=== PATIENT | male | born 1980 | race Caucasian/White ===

== ENCOUNTER 2016-12-12 07:42 | Emergency (ER) | payer BC ==
--- NOTE | 2016-12-12 08:34 | UC ---
Oscar Santiago Matthew, scribed for [facility] LouisYomi MD on 12/12/16 at 0828 . Respiratory Complaint HPI - HPI Summary HPI Summary: Nurse's Note: COUGH CONGESTION FOR 1 WEEK, pt states his whole family is sick and on abx Note:Vital signs stable, afebrile, BP 166/113, Pulse oxygen 100%. Note is made of previous Hx of depression and ADHD. Patient is on adderall. Review of visit Hx and PMHx does not show treatment for HTN. Patient was evaluated in 2011 for "chronic cough". He is currently on oxycodone for back pain. He stopped smoking 2 years ago. In Room Note: A 35 y/o male presents to [facility] with a cough for the past week. Associated symptoms includes chest congestion, rhinorrhea, nasal congestion, sinus discomfort, and sore throat. He denies fever, n/v/d, ear ache, chest pain , and SOB. He states that his whole family is ill and taking Abx. 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 No Hx of pneumonia. He states that usually in the spring or fall with the season changes, he normally develops a bronchitis. FHx of HTN - father , no diabetes, and no CAD. He states that his blood pressure has been increasing with his weight. - History of Current Complaint Chief Complaint: UCRespiratory Stated Complaint: RESP ISSUE Time Seen by Provider: 12/12/16 08:12 Hx Obtained From: Patient Onset/Duration: Gradual Onset, Lasting Weeks - 1, Still Present Timing: Constant Severity Initially: Mild Severity Currently: Mild Character: Cough: Productive Associated Signs And Symptoms: Positive: Nasal Congestion, Sinus Discomfort. Negative: Fever, Pleuritic Chest Pain - Allergies/Home Medications Allergies/Adverse Reactions: Allergies Allergy/AdvReac Type Severity Reaction Status Date / Time No Known Allergies Allergy Verified 12/12/16 07:59 Home Medications: Home Medications Amphetamine-Dextroamphetamine [Adderall 10 mg-] 1 tab PO DAILY 12/12/16 [ History Confirmed 12/12/16] Fexofenadine (NF) [Ivone 180 (NF)] 180 mg PO 12/12/16 [History] PMH/Surg Hx/FS Hx/Imm Hx Psychological History Of: Reports: Anxiety, Depression - Surgical History Surgical History: Yes Surgery Procedure, Year, and Place: T&A - Family History Known Family History: Positive: Hypertension - Father Negative: Cardiac Disease, Diabetes - Social History Occupation: Employed Full-time Alcohol Use: Weekly Substance Use Type: None Smoking Status (MU): Former Smoker When Did the Patient Quit Smoking/Using Tobacco: 2 years ago Review of Systems Constitutional: Negative Skin: Negative Eyes: Negative ENT: Sore Throat, Nasal Discharge, Other - sinus discomfort Respiratory: Cough, Other - chest congestion Cardiovascular: Negative Gastrointestinal: Negative Genitourinary: Negative Motor: Negative Neurovascular: Negative Musculoskeletal: Negative Neurological: Negative Psychological: Negative All Other Systems Reviewed And Are Negative: Yes Physical Exam Triage Information Reviewed: Yes Appearance: Well-Appearing, No Pain Distress, Well-Nourished Vital Signs: Initial Vital Signs Temp 98.2 F 12/12/16 07:55 Pulse 84 12/12/16 07:55 Resp 18 12/12/16 07:55 BP 166/113 12/12/16 07:55 Pulse Ox 100 12/12/16 07:55 Vital Signs Reviewed: Yes Eyes: Positive: Conjunctiva Clear ENT: Positive: Hearing grossly normal, Pharynx normal, TMs normal, Muffled/ hoarse voice. Negative: Tonsillar swelling, Tonsillar exudate Neck: Positive: Supple, Nontender Respiratory: Positive: Chest non-tender, Lungs clear, Normal breath sounds Cardiovascular: Positive: RRR Abdomen Description: Positive: Nontender, No Organomegaly, Soft Bowel Sounds: Positive: Present Musculoskeletal: Positive: Strength Intact Neurological: Positive: Alert Psychological: Positive: Age Appropriate Behavior Skin Exam: Normal - Additional Comments The only findings were diagnostic viral bronchitis and HTN. Diagnostic Evaluation - Laboratory O2 Sat by Pulse Oximetry: 100 Respiratory Course/Dx - Course Course Of Treatment: I explained to the patient that he does not need an Abx at this time, but per his request I will prescribe a z-pack . He understand that he should only take the Abx if he develops chest pian, increased temperature, cough, or SOB, and that he should then return for evaluation. DOCUMENTATION NOTE: Hypertensive BP reading (>= 140/90); patient not referred to PCP within 1 day-4 wks for follow-up - Differential Dx/Diagnosis Differential Diagnosis/HQI/PQRI: Other - [place]monia vs. bronchitis Provider Diagnoses: viral bronchitis Discharge - Discharge Plan Condition: Stable Disposition: HOME Prescriptions: Azithromycin TAB* [Zithromax TAB*] 250 mg PO DAILY #6 tab MDD 2 Patient Education Materials: Acute Bronchitis (ED) Referrals: Kya Guerrero MD [Primary Care Provider] - Additional Instructions: WE DISCUSSED: You have been given zithromax. Wait and begin only if you spike a temperature, develop shortness of breath, increasing cough, chest pain. Then start the medication and return for re-evaluation for possible pneumonia. Also see instructions below. Your blood pressure reading today was 166/113, which is HYPERTENSIVE. Follow- up with your primary care provider within 4 weeks for blood pressure readings and further evaluation. Thank you for helping us improve patient care by filling out the [facility] [place]. COUGH, CONGESTION of CHEST, SINUSES OR EARS: The most important goal is to liquefy all the phlegm and get it out of your head and chest. Any illness causing cough, congestion, sore throat or sinus discomfort can be helped by doing the following: STAND UNDER SHOWER STREAM TO LOOSEN SECRETIONS. STAY AWAY FROM ANY SMOKE OR IRRITANTS. WHAT ELSE CAN HELP RELIEVE YOUR SYMPTOMS: GENERAL TYPES OF MEDICINE THAT MAY HELP DECONGESTANTS: helps relieve stuffiness and clears sinuses. Pseudoephedrine ( Sudafed or generic) is effective but you need to ask the pharmacist for it because it may be kept behind the counter. ANTIHISTAMINES: are NOT helpful in many colds and flus because they can worsen sore throat, dry eyes and mouth and cause drowsiness. Examples are diphenhydramine, doxylamine and chlorpheniramine. They can help dry you out if you are having profuse, clear drainage from the nose. EXPECTORANTS: helps thin mucous in the nose and chest, making it easier to clear the fluid out. Expectorants are in most combination cough/cold remedies and should be taken with plenty of water. Guaifenesin is the most common expectorant and it comes in pill or liquid form. Mucinex is an extended release form of guaifenesin. COUGH SUPPRESANT: reduces the body's cough reflex. Dextromethorphan is in over the counter products, but sometimes narcotics such as codeine or hydrocodone are used to suppress cough. SPECIFIC MEDICATIONS: The most important goal is to liquefy all the phlegm and get it out of your head and chest: The following medicines (in prescription form or you can buy them without prescription) may help: To help with cough: DEXTROMETHORPHAN (Vicks, Robitussin, Nyquil and other brands) To help break up phlegm: GUAIFENESIN (Mucinex, Robitussin, other brands) To help clear congestion: PSEUDOEPHEDRINE (Sudafed, Dimetapp, other brands) TRY TO CLEAR NOSE: AFRIN NASAL SPRAY: 2-3 SPRAYS PER NOSTRIL, TWICE A DAY FOR TWO DAYS ONLY. USEFUL WAYS TO FEEL BETTER WITHOUT MEDICATIONS: STAND UNDER SHOWER STREAM TO LOOSEN SECRETIONS. USE A VAPORIZOR. STAY AWAY FROM ANY SMOKE OR IRRITANTS. USE SALINE NASAL SPRAY TO KEEP FLOW OF MUCOUS FROM NOSTRILS AND SINUSES. CONSIDER USING NETI POT TO HELP WITH ALLERGIES AND CONGESTION IN THE NOSE. USE THIS THREE TIMES A WEEK. YOU CAN GET THIS AT [facility] IN [place] OR VARIOUS DRUGSTORES. DRINK LOTS OF WARM FLUIDS USEFUL HOME REMEDIES: WARM WATER GARGLES, WITH TSP OF SALT PER 8 OUNCES OF WATER, GARGLE FOR A FEW SECONDS AND SPIT OUT; GARGLE AND SPIT OUT; EVERY THREE HOURS. AND/OR: WARM WATER OR TEA, HONEY AND LEMON; 2-3 CUPS A DAY. FOR SORE THROAT: KEEP THROAT MOIST WITH LOZENGES; TEA AND HONEY. USE WARM WATER GARGLES 3-4 TIMES A DAY. FOLLOW UP: RE-CHECK IN 1O DAYS, NEEDED, IF YOU ARE NOT IMPROVING. RETURN HERE OR SEE YOUR PHYSICIAN. The documentation as recorded by the Oscar bell Matthew accurately reflects the service I personally performed and the decisions made by me, Yomi Guardado MD.
[2016-12-12 08:40] VITALS: BP 148/91
== END 2016-12-12 08:41 | disposition home or self-care (01) ==
LOC: UCEAST 07:42
DX: J20.8 Acute bronchitis due to other specified organisms (principal); F41.9 Anxiety disorder, unspecified; F32.9 Major depressive disorder, single episode, unspecified; I10 Essential (primary) hypertension; Z87.891 Personal history of nicotine dependence
CPT/HCPCS: 99202; G0463

== ENCOUNTER 2018-02-02 09:49 | Emergency (ER) | payer BC ==
--- OUTSIDE RECORDS SUMMARY | 2018-02-02 09:55 | XMS REPORT ---
:1980 External Reference #:[id number] Author Organization [facility] Address [address] [place] [address] Phone [phone] Care Team Providers Name Role Phone Claudette Oro MICA MACHINE OPERATOR Care Team Information Reach Lift Truck Driver Unavailable Kya Guerrero MD Primary Care Physician Unavailable Payers Type Date Identification Numbers Payment Provider Subscriber Commercial PayID: [id number] [facility] Michael Guerra [address] [address] [place]RI[place] [id number] Problems Description No Information Family History Date Family Member(s) Problem(s) Comments General Seasonal Allergies Social History Type Date Description Comments Occupation site tech @ [employer] Cigarette Use Former Cigarette Smoker 1/2 Pack Daily x 15 yrs, quit age 34 Cigars Never Smoked Cigars Pipe Never Smoked A Pipe Smokeless Tobacco Never Used Smokeless Tobacco ETOH Use Currently occasionally consumes alcohol Smoking Patient is a former smoker Allergies, Adverse Reactions, Alerts Date Description Reaction Status Severity Comments 01/17/2018 NKDA active Medications Medication Date Status Form Strength Qnty SIG Indications Ordering Provider Amphetamine-Dex Active Tablets 20mg 60tabs take one F90.0 Ronald troamphetamine 018 by mouth N.P., twice per Rachael C. day Wellbutrin XL Active Tablets ER 150mg 90tabs 1 by F41.1 Cesar COLBERT, 015 24HR mouth Kya every day Pantoprazole Active Tablets DR 40mg 90tabs 1 by K21.9 Cesar COLBERT , Sodium 013 mouth Kya every day Trazodone HCL /0 Active Tablets 50mg 60tabs 1-2 by Serjio1 Ronald 000 mouth at N.P., bedtime Rachael C. as needed Vital Signs Date Vital Result Comment 01/17/2018 Weight 255.00 lb Weight in kg's 115.668 Height 72 inches 6'0" Height in cm's 182.9 cm BMI (Body Mass Index) 34.6 kg/m2 Results Description No Information Procedures Date CPT Code Description Status 01/17/2018 10828 Fiberoptic Laryngoscopy Completed Encounters Type Date Location Provider CPT E/M Dx Office Visit 01/17/2018 9:45a [place] 08/01/07 Dipak Jones, [address] R04.2 [place] Plan of Care 01/17/2018 - Dipak Jones M.D.R04.2 HemoptysisComments:About 1.5 months ago the patient got sick and was coughing a lot and he was getting blood tinged mucous plugs when he was coughing. He is doing better now but with his history of smoking his PCP recommended an ENT examination and nasolaryngoscopy. His ENT examination and nasolaryngoscopy are both normal today.
[2018-02-02] MEDS ORDERED: Naproxen TAB* 250 MG PO ONE (10:23)
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
--- NOTE | 2018-02-02 10:45 | RAD ---
Indication: LEFT foot and great toe pain following injury. Comparison: April 03, 2012 Technique: AP, lateral, and oblique views LEFT foot. Report: Negative for fracture or malalignment. Significant amorphous soft tissue calcification medial peripheral to the head of the first metatarsal with associated soft tissue swelling. No discrete osseous erosions evident. Only minimal first metatarsal phalangeal joint osteophytosis and joint space narrowing. Negative for periarticular osteopenia. IMPRESSION: #. No evidence for fracture or traumatic malalignment. #. Probable gout arthropathy at the first metatarsal phalangeal joint with soft tissue tophus increased in magnitude compared with the 2012 exam. Correlate with clinical assessment.
[2018-02-02 11:03] VITALS: BP 186/106
== END 2018-02-02 11:10 | disposition home or self-care (01) ==
LOC: UCEAST 09:49
DX: S99.922A Unspecified injury of left foot, initial encounter (principal); W17.89XA Other fall from one level to another, initial encounter; Y93.16 Activity, rowing, canoeing, kayaking, rafting and tubing; Y92.828 Other wilderness area as the place of occurrence of the external cause; M10.072 Idiopathic gout, left ankle and foot; I10 Essential (primary) hypertension; K21.9 Gastro-esophageal reflux disease without esophagitis; F90.9 Attention-deficit hyperactivity disorder, unspecified type; F41.9 Anxiety disorder, unspecified; F32.9 Major depressive disorder, single episode, unspecified; Z82.49 Family history of ischemic heart disease and other diseases of the circulatory system; Z87.891 Personal history of nicotine dependence
CPT/HCPCS: 99213; A9270-GY; G0463

== ENCOUNTER 2018-02-05 12:39 | Emergency (ER) | payer BC ==
--- OUTSIDE RECORDS SUMMARY | 2018-02-05 12:54 | XMS REPORT ---
:1980 External Reference #:[id number] Author Organization [facility] Address [address] [place] [address] Phone [phone] Care Team Providers Name Role Phone Kya Guerrero M.D. Care Team Information Dispensing Optician Unavailable Kya Guerrero M.D. Primary Care Physician Unavailable Payers Type Date Identification Numbers Payment Provider Subscriber Commercial Effective: Policy Number: [id number] BC/BS Of SARANYAStevie Rodriguez Ashlyn 2016 Group Number: [id number] [address] [address] PayID: [id number] [place] [address] Problems Date Description Provider Status Onset: 05/08/2012 Anxiety state Byron White M.D. Active Onset: 11/13/2012 Disturbance in sleep behavior Byron White M.D. Active Onset: 06/13/2014 Low back pain Harjit Escalona M.D. 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 Active Onset: 09/13/2011 Acute bronchitis Dipak Yee M.D. Resolved Resolved: 10/10/2015 Onset: 02/14/2012 Lyme disease Dipak Yee M.D. Resolved Resolved: 10/10/2015 Onset: 04/10/2012 Neurogenic bladder Byron White M.D. Resolved Resolved: 10/10/2015 Family History Date Family Member(s) Problem(s) Comments General No early myocardial infarction or cerebrovascular accident, no colon or prostate cancer Social History Type Date Description Comments Marital Status Patient is Living Situation Lives with spouse and daughters General [facility]- Psychiatry Tech Cigarette Use Former Cigarette Smoker started age 18, about 3/4 pack per day, quit age 28 ETOH Use Occasional Smoking Patient is a former smoker Recreational Drug Use Formerly used Marijuana regularly Recreational Drug Use Former Drug User Allergies, Adverse Reactions, Alerts Date Description Reaction Status Severity Comments 09/13/2011 NKDA active 01/17/2003 Nkma inactive Medications Medication Date Status Form Strength Qnty SIG Indications Ordering Provider Prednisone 12/09/ Active Tablets 50mg 5tabs 1 by mouth M77.11 Claudette 2018 every day Preethi, SENIOR RECEPTIONIST Amphetamine-De 10/05/ Active Tablets 20mg 60tab take one by F90.0 Loretta Owens xtroamphetamin 2018 s mouth twice [place], POLLS OR SURVEYS INTERVIEWER e per day Naproxen 04/21/ Active Tablets 500mg 60tab 1 by mouth Kya 2016 s twice a day elva Guerrero M.D. Wellbutrin XL 04/23/ Active Tablets 150mg 90tab 1 by mouth F41.1 Kya 2014 ER 24HR s every day Benito Guerrero Pantoprazole 02/15/ Active Tablets 40mg 90tab 1 by mouth K21.[address] terry every day Benito Guerrero Trazodone HCL / Active Tablets 50mg 60tab 1-2 by mouth F41.1 Rachael Chavez 0000 s at bedtime Ronald, as needed POLLS OR SURVEYS INTERVIEWER Oxycodone HCL / Active Tablets 10mg 12tab 1 tab by Loretta Owens 0000 s mouth q6 [place], POLLS OR SURVEYS INTERVIEWER hours as needed Ventolin HFA / Active Aerosol 108(90Bas 2 puffs Unknown 0000 e) every 4 mcg/Act hours as needed Indomethacin / Active Capsules 50mg take one by Unknown 0000 mouth three times daily as needed for 10 days Benzonatate 10/05/ Hx Capsules 200mg 30cap take one by J11.1 Rachael Chavez 2018 - s mouth 3 Ronald, 12/09/ times daily POLLS OR SUR[employer]YS INTERVIEWER 2018 as needed for cough Hydrocodone 10/05/ Hx Suer 10-8mg/5M 230ml 2.5ml by Rachael Chavez Polistirex/Chl 2018 - L mouth up to Ronald, orpheniramine 12/09/ 3 times POLLS OR SUR[employer]YS INTERVIEWER Polistirex 2018 daily as needed for cough Amphetamine-De 05/17/ Hx Tablets 10mg 120ta 2 tabs in in F90.0 Claudette xtroamphetamin 2017 - bs the morning Preethi, e 10/05/ and 1-2 tabs SENIOR RECEPTIONIST 2018 in afternoon as needed Amphetamine-De 04/21/ Hx Tablets 20mg 60tab 2 by mouth F90.0 Claudette xtroamphetamin 2017 - s every day Preethi, e 05/17/ SENIOR RECEPTIONIST 2017 Amphetamine-De 03/14/ Hx Tablets 10mg 90tab 1 tab three F90.0 Kya xtroamphetamin 2017 - s times a day [place], e 04/21/ M.D. 2016 Amphetamine-De 12/22/ Hx Tablets 15mg 60tab 1 tab twice F90.0 Kya xtroamphetamin 2016 - s a day as [place], e 03/14/ needed M.D. 2016 Nicotine 05/14/ Hx Gum 2mg 120un chew gum as Z00.00 Kya Polacrilex 2015 - its needed , M.D. 2016 Amphetamine-De 12/11/ Hx Caps ER 30mg 30cap 1 by mouth F90.0 Kya xtroamphet ER 2015 - 24HR s every day [place], M.D. 2016 Oxycodone HCL 12/01/ Hx Tablets 10mg 30tab 1 tab by M54.5 Valencia 2015 - s mouth a day Viviana, 12/12/ as needed SENIOR RECEPTIONIST 2016 Oxycodone HCL 10/15/ Hx Tablets 10mg 30tab 1 tab by M54.5 Kya 2016 - s mouth daily , 10/15/ prn (30 M.D. 2015 only; needs drug testing) Oxycodone HCL 10/09/ Hx Tablets 10mg 60tab 1 tab by M54.5 Kya 2016 - s mouth twice [place], 12/01/ a day as M.D. 2016 needed Physical 10/09/ Hx treatment M54.5 Kya Therapy 2016 - and [place], 05/14/ evaluation M.D. 2016 low and upper back pain Concerta 10/09/ Hx Tablets 27mg 30tab 1 by mouth F90.0 Kya 2016 - ER s every day [place], 12/11/ M.D. 2016 Levofloxacin 08/06/ Hx Tablets 500mg 10tab 1 by mouth J01.40 Harjit Escalona, 2016 - s every day M.D. 10/09/ for 10 days 2016 Amoxicillin/Cl 04/23/ Hx Tablets 875-125mg 20tab 1 by mouth J01.40 ovi Coelho 2015 - s twice a day M.D. Potassium 08/06/ for 1 0days 2015 Concerta 04/23/ Hx Tablets 27mg 30tab 1 by mouth F90.0 Harjit Escalona 2015 - ER s every day M.D. 2015 Oxycodone-Acet 02/28/ Hx Tablets 7.5-325mg 120ta 1 by mouth M54.5 Kya aminophen 2014 - bs four times a [place], 10/09/ day as M.D. 2016 needed Percocet 01/09/ Hx Tablets 5-325mg 60tab 1 by mouth 724.2 Harjit Escalona 2014 - s twice a day M.D. 2014 Ivone-D 24 12/11/ Hx Tablets 180-240mg 30tab 1 by mouth Charles Coelho Allergy & 2015 - ER 24HR s every day M.D. Congestion 2015 Percocet 08/21/ Hx Tablets 7.5-325mg 90tab 1 by mouth 724.2 Harjit Escalona 2014 - s three times M.D. 01/09/ a day as 2014 needed Percocet 06/13/ Hx Tablets 5-325mg 30tab 1 by mouth 724.2 Harjit Escalona 2013 - s every day M.D. 2014 Hydrocodone-Ac 04/30/ Hx Tablets 5-325mg 30tab 1 by mouth 724.2 Harjit Escalona etaminophen 2013 - s daily as M.D. 06/13/ needed for 2013 pain Lorazepam 10/31/ Hx Tablets 0.5mg 90tab 1 by mouth F41.1 Kya 2013 - s three times [place], 05/14/ a day as M.D. 2015 needed anxiety Hydrocodone/Ac 08/13/ Hx Tablets 5-325mg 30tab 1 by mouth 724.2 Harjit Escalona etaminophen 2013 - s daily as M.D. 04/30/ needed for 2013 pain Hydrocodone 07/12/ Hx Tablets 10-300mg 30tab one tablet 724.2 Matthews A. Bitartrate/Kade 2012 - s po daily Benito White taminophen 2013 Hydrocodone/Ac 05/16/ Hx Tablets 5-325mg 90tab 1 by mouth 724.2 kain Coelho 2012 - s three times M.DWinsome 07/12/ a day as 2012 needed pain Hydrocodone/Ac 04/17/ Hx Tablets 7.5-325mg 120ta 1 po qid 724.2 Byron Moreira etaminophen 2013 - bs Benito White 2012 Hydrocodone/Ac 04/12/ Hx Tablets 5-325mg 45tab 1-2 q 6h prn 724.2 Valencia etaminophen 2013 - s Viviana SENIOR RECEPTIONIST 2012 Celexa 11/13/ Hx Tablets 20mg 1 po qd Family 2013 - Medicine 03/04/ [facility] 2013 [facility] Oxycodone HCL 07/10/ Hx Tablets 5mg 120ta 1-2 po q 6 Byron Moreira 2012 - bs hrs prn pain Benito White 2012 Pantoprazole 05/29/ Hx Tablets 40mg 30tab 1 po qd 786.2 Byron Moreira Sodium 2011 - DR harrison White M.D. 2012 Omeprazole 05/25/ Hx Capsules 40mg 30cap 1 po qd 786.2 Byron Moreira 2012 - DR harrison White M.D. 2011 Note For Work 1unit Patient able Byron Moreira 2012 - s to return to Benito White 05/25/ work 201105/15/12 without restriction Work Note Patient Byron Moreira 2011 - needs to be Benito White 05/25/ out of work 2011 until further notice as of 04/17/12 Lorazepam 04/10/ Hx Tablets 0.5mg 30tab 1 po qd prn 300.00 Byron Moreira 2012 - s anxiety Benito White 2012 Flomax 04/10/ Hx Capsules 0.4mg 20cap 1 po qd Byron Moreira 2012 - s Benito White 2011 Celexa 03/28/ Hx Tablets 20mg 1 po qd w/ a Family 2011 - 40mg tab Medicine 05/25/ Associates 2011 [facility] Flexeril 03/28/ Hx Tablets 10mg 30tab 1 po tid prn 724.2 Rosina 2012 - s muscle spasm Kan, 04/10/ Afnp-C 2012 Physical 03/28/ Hx treatment 724.2 Rosina Therapy 2011 - and Kan, 03/31/ evaluation Afnp-C 2012 of lower back pain Zithromax 02/13/ Hx Tablets 250mg 6Tabs 2 po qd 465.9 Dipak David 2011 - today , then Breiman, po qd M.D. 2011 times 4 Robitussin A-C 02/13/ Hx 5Floz 1-2 tsp Dipak David 2012 - q4hrs prn Breiman, 03/28/ cough M.D. 2011 Robitussin A-C 09/13/ Hx 5Floz 1-2 tsp Dipak David 2011 - q4hrs prn Breiman, 02/13/ cough M.D. 2011 Zithromax 01/11/ Hx Tablets 250mg 6Tabs 2 po qd 465.9 Dipak David 2010 - , then Breiman, po qd M.D. 2011 times 4 Robitussin A-C 01/11/ Hx 5Floz 1-2 tsp Dipak David 2010 - q4hrs prn Breiman, 09/13/ cough M.D. 2011 Zithromax 04/22/ Hx Tablets 250mg 6Tabs 2 po qd 465.9 Rosina 2009 - , then Kan, po qd Afnp-C 2009 times 4 Avelox 12/29/ Hx Tablets 400mg 10tab 1 po qd 465.9 Blayne Moreira 2009 - s Peter, 01/08/ Benito 2010 Wellbutrin XL 12/20/ Hx Tablets 300mg 1 po qd [facility] 2009 - ER 24HR Medicine 01/11/ Associates 2011 [facility] Celexa 12/20/ Hx Tablets 40mg 30tab 1 po qd Family 2009 - s Medicine 11/13/ [facility] 2013 [facility] Neurontin 12/20/ Hx Capsules 300mg 30cap 1 qid and [facility] 2009 - s qid prn Medicine 01/09/ Associates 2015 MDD [facility] 2400mg Ambien 12/20/ Hx Tablets 10mg 30tab 1 po qhs prn Family 2009 - s sleep Medicine 05/25/ [facility] 2012 [facility] Azithromycin 12/20/ Hx Tablets 250mg 6tabs 2 po today 465.9 Matthews A. 2009 - and 1 po x 4 Benito White 12/29/ 2009 Robitussin A/C 12/20/ Hx 80ml 1-2 tsp po 465.9 Rosina 2009 - qhs prn Kan, 04/28/ cough Afnp-C 2009 Daytrana / Hx Patches 20mg/9HR on in the Am Unknown 0000 - off in the 2011 Wellbutrin / Hx Tablets 75mg 60tab 1 po bid Unknown 0000 - s 2014 Flomax / Hx Capsules 0.4mg 1 po qd Unknown 0000 - 2011 Percocet / Hx Tablets 5-325mg 120ta 1-2 tabs po Matthews A. 0000 - bs every 6 Benito White 07/10/ hours prn 2011 pain Ambien CR / Hx Tablets 12.5mg 1 qhs prn Unknown 0000 - ER sleep 2012 Concerta 00/ Hx Tablets 27mg one tab po Unknown 0000 - ER qam 2014 Concerta 00/ Hx Tablets 36mg 30tab 1 by mouth 314.00 Harjit Escalona 0000 - ER s every M.D. morning 2014 Wellbutrin SR / Hx Tablets 100mg 90tab 1 by mouth Harjit Escalona, 0000 - ER 12HR s every day M.D. 2014 Immunizations CPT Code Status Date Vaccine Lot # [id number] Given 03/28/2012 Tdap Tetanus, W Pertussis [id number] Vital Signs Date Vital Result Comment 02/03/2018 BP Systolic 142 mmHg BP Diastolic 100 mmHg Heart Rate 94 /min Body Temperature 99.4 F Respiratory Rate 16 /min 12/09/2017 BP Systolic 142 mmHg BP Diastolic 96 mmHg Heart Rate 72 /min Body Temperature 98.5 F Respiratory Rate 16 /min Height 72 inches 6'0" Weight 250.00 lb BMI (Body Mass Index) 33.9 kg/m2 10/05/2017 BP Systolic 128 mmHg BP Diastolic 82 mmHg Heart Rate 84 /min Body Temperature 97.5 F Height 72 inches 6'0" Weight 260.00 lb BMI (Body Mass Index) 35.3 kg/m2 04/21/2017 BP Systolic 146 mmHg BP Diastolic 90 mmHg Heart Rate 84 /min Body Temperature 97.9 F Respiratory Rate 16 /min Height 72 inches 6'0" Weight 249.25 lb BMI (Body Mass Index) 33.8 kg/m2 12/22/2016 BP Systolic 156 mmHg BP Diastolic 98 mmHg Heart Rate 90 /min Body Temperature 98.6 F Respiratory Rate 16 /min Height 72 inches 6'0" Weight 253.25 lb BMI (Body Mass Index) 34.3 kg/m2 05/14/2016 BP Systolic 140 mmHg BP Diastolic 90 mmHg Heart Rate 84 /min Body Temperature 98.2 F Respiratory Rate 12 /min Height 72 inches 6'0" Weight 240.00 lb BMI (Body Mass Index) 32.5 kg/m2 12/12/2015 BP Systolic 120 mmHg BP Diastolic 80 mmHg Heart Rate 88 /min Body Temperature 98.0 F Respiratory Rate 18 /min Height 72 inches 6'0" Weight 224.00 lb BMI (Body Mass Index) 30.4 kg/m2 10/10/2015 BP Systolic 138 mmHg BP Diastolic 90 mmHg Heart Rate 116 /min Body Temperature 98.3 F Respiratory Rate 16 /min Height 72 inches 6'0" Weight 221.00 lb BMI (Body Mass Index) 30.0 kg/m2 08/06/2015 BP Systolic 132 mmHg BP Diastolic 76 mmHg Heart Rate 68 /min Body Temperature 97.9 F Respiratory Rate 18 /min O2 % BldC Oximetry 100 % Height 72 inches 6'0" Weight 217.00 lb BMI (Body Mass Index) 29.4 kg/m2 04/23/2015 BP Systolic 126 mmHg BP Diastolic 70 mmHg Heart Rate 72 /min Body Temperature 97.6 F Respiratory Rate 20 /min Height 72 inches 6'0" Weight 210.00 lb BMI (Body Mass Index) 28.5 kg/m2 02/28/2015 BP Systolic 140 mmHg BP Diastolic 90 mmHg Heart Rate 96 /min Body Temperature 99.1 F Respiratory Rate 16 /min Height 72 inches 6'0" Weight 215.00 lb BMI (Body Mass Index) 29.2 kg/m2 01/09/2015 BP Systolic 136 mmHg BP Diastolic 90 mmHg Heart Rate 96 /min Body Temperature 98.3 F Respiratory Rate 17 /min Height 72 inches 6'0" Weight 212.12 lb BMI (Body Mass Index) 28.8 kg/m2 08/21/2014 BP Systolic 124 mmHg BP Diastolic 80 mmHg Heart Rate 78 /min Body Temperature 99.4 F Respiratory Rate 16 /min Height 72 inches 6'0" Weight 214.00 lb BMI (Body Mass Index) 29.0 kg/m2 06/13/2014 BP Systolic 132 mmHg BP Diastolic 92 mmHg Heart Rate 110 /min Body Temperature 98.8 F Respiratory Rate 14 /min Height 72 inches 6'0" Weight 206.00 lb BMI (Body Mass Index) 27.9 kg/m2 03/04/2014 BP Systolic 128 mmHg BP Diastolic 74 mmHg Heart Rate 80 /min Body Temperature 98.1 F Respiratory Rate 18 /min Height 72 inches 6'0" Weight 214.00 lb BMI (Body Mass Index) 29.0 kg/m2 08/13/2013 BP Systolic 120 mmHg BP Diastolic 70 mmHg Heart Rate 72 /min Body Temperature 99.0 F Respiratory Rate 18 /min Height 72 inches 6'0" Weight 207.00 lb BMI (Body Mass Index) 28.1 kg/m2 07/12/2013 BP Systolic 130 mmHg BP Diastolic 90 mmHg Heart Rate 84 /min Body Temperature 98.2 F Respiratory Rate 16 /min Height 72 inches 6'0" Weight 214.00 lb BMI (Body Mass Index) 29.0 kg/m2 06/15/2013 BP Systolic 130 mmHg BP Diastolic 90 mmHg Heart Rate 96 /min Body Temperature 98.7 F Respiratory Rate 12 /min Height 72 inches 6'0" Weight 207.00 lb BMI (Body Mass Index) 28.1 kg/m2 05/16/2013 BP Systolic 120 mmHg BP Diastolic 66 mmHg Heart Rate 88 /min Body Temperature 98.6 F Respiratory Rate 18 /min Height 72 inches 6'0" Weight 209.00 lb BMI (Body Mass Index) 28.3 kg/m2 04/17/2013 BP Systolic 114 mmHg BP Diastolic 66 mmHg Heart Rate 116 /min Body Temperature 99.0 F Respiratory Rate 18 /min Height 72 inches 6'0" Weight 209.00 lb BMI (Body Mass Index) 28.3 kg/m2 04/12/2013 BP Systolic 130 mmHg BP Diastolic 96 mmHg Heart Rate 104 /min Body Temperature 99.3 F Respiratory Rate 18 /min Height 72 inches 6'0" Weight 209.25 lb BMI (Body Mass Index) 28.4 kg/m2 12/05/2012 BP Systolic 118 mmHg BP Diastolic 70 mmHg Heart Rate 76 /min Body Temperature 97.3 F Respiratory Rate 16 /min Height 72 inches 6'0" Weight 230.00 lb BMI (Body Mass Index) 31.2 kg/m2 11/13/2012 BP Systolic 120 mmHg BP Diastolic 60 mmHg Heart Rate 76 /min Body Temperature 98.3 F Respiratory Rate 18 /min Height 72 inches 6'0" Weight 242.00 lb BMI (Body Mass Index) 32.8 kg/m2 08/14/2012 BP Systolic 120 mmHg BP Diastolic 86 mmHg Heart Rate 64 /min Body Temperature 97.3 F Respiratory Rate 18 /min Height 72 inches 6'0" Weight 252.38 lb BMI (Body Mass Index) 34.2 kg/m2 07/10/2012 BP Systolic 110 mmHg BP Diastolic 70 mmHg Heart Rate 84 /min Body Temperature 99.3 F Height 72 inches 6'0" Weight 258.00 lb BMI (Body Mass Index) 35.0 kg/m2 06/05/2012 BP Systolic 110 mmHg BP Diastolic 70 mmHg Heart Rate 108 /min Body Temperature 98.5 F Height 72 inches 6'0" Weight 258.00 lb BMI (Body Mass Index) 35.0 kg/m2 05/25/2012 BP Systolic 104 mmHg BP Diastolic 70 mmHg Heart Rate 78 /min Body Temperature 96.8 F Height 72 inches 6'0" Weight 259.00 lb BMI (Body Mass Index) 35.1 kg/m2 05/08/2012 BP Systolic 100 mmHg BP Diastolic 70 mmHg Heart Rate 78 /min Body Temperature 98.0 F Respiratory Rate 20 /min Height 72 inches 6'0" Weight 250.00 lb BMI (Body Mass Index) 33.9 kg/m2 04/17/2012 BP Systolic 102 mmHg BP Diastolic 72 mmHg Heart Rate 84 /min Body Temperature 97.4 F Height 72 inches 6'0" Weight 251.00 lb BMI (Body Mass Index) 34.0 kg/m2 04/10/2012 BP Systolic 102 mmHg BP Diastolic 72 mmHg Heart Rate 96 /min Body Temperature 97.7 F Height 72 inches 6'0" Weight 257.00 lb BMI (Body Mass Index) 34.9 kg/m2 03/31/2012 BP Systolic 110 mmHg BP Diastolic 60 mmHg Heart Rate 78 /min Body Temperature 97.7 F Height 72 inches 6'0" Weight 253.00 lb BMI (Body Mass Index) 34.3 kg/m2 03/28/2012 BP Systolic 138 mmHg BP Diastolic 88 mmHg Heart Rate 66 /min Body Temperature 99.5 F Height 72 inches 6'0" Weight 256.00 lb BMI (Body Mass Index) 34.7 kg/m2 02/14/2012 BP Systolic 120 mmHg BP Diastolic 72 mmHg Heart Rate 92 /min Body Temperature 100.5 F Height 72 inches 6'0" Weight 249.00 lb BMI (Body Mass Index) 33.8 kg/m2 09/13/2011 BP Systolic 128 mmHg BP Diastolic 84 mmHg Heart Rate 100 /min Body Temperature 98.6 F Respiratory Rate 15 /min O2 % BldC Oximetry 100 % Height 72 inches 6'0" Weight 232.00 lb BMI (Body Mass Index) 31.5 kg/m2 01/11/2011 BP Systolic 110 mmHg BP Diastolic 70 mmHg Heart Rate 72 /min Body Temperature 97.8 F Respiratory Rate 16 /min Height 72 inches 6'0" Weight 210.00 lb BMI (Body Mass Index) 28.5 kg/m2 06/24/2010 BP Systolic 112 mmHg BP Diastolic 64 mmHg Heart Rate 72 /min Height 72 inches 6'0" Weight 206.00 lb BMI (Body Mass Index) 27.9 kg/m2 04/22/2010 BP Systolic 110 mmHg BP Diastolic 80 mmHg Heart Rate 72 /min Body Temperature 99.2 F Weight 210.00 lb 12/20/2009 BP Systolic 120 mmHg BP Diastolic 80 mmHg Heart Rate 88 /min Body Temperature 99.9 F Height 72 inches 6'0" Weight 212.00 lb BMI (Body Mass Index) 28.7 kg/m2 03/11/2003 BP Systolic 110 mmHg BP Diastolic 66 mmHg Heart Rate 60 /min Body Temperature 98.5 F Height 71 inches 5'11" Weight 191.00 lb BMI (Body Mass Index) 26.6 kg/m2 01/17/2003 BP Systolic 110 mmHg BP Diastolic 60 mmHg Heart Rate 68 /min Body Temperature 98.4 F Height 71 inches 5'11" Weight 184.00 lb BMI (Body Mass Index) 25.7 kg/m2 Results Test Date Test Result H/L Range Note Laboratory test finding 02/03/2018 Free T4 <pending> 0.75-1.54 TSH <pending> 0.5-5.0 Uric Acid <pending> 2.5-9.2 CBC Electronic (Fma New) 02/03/2018 WBC 10.57 High 4.0-10.0 RBC 4.87 3.93-6.0 Hemoglobin (Fma/CMC/CTX) 14.5 g/dL 12.0-17.0 Hematocrit (Fma/CMC/CTX) 41.4 % 35.0-50.0 Mean Corpuscular Vol 85.0 fL 80-95 Mean Corpuscular Hemoglobin 29.8 pg 25.6-32.2 Mean Corpuscular Hemo Concen 35.0 g/dL 32.2-36.0 Platelets 234 10^3/ul 163-400 RDW-CV 12.1 11.6-14.4 Mean Platelet Volume 9.3 fL 8.0-12.4 Absolute Neutrophils BLD 7.61 High 1.56-6.13 Absolute Lymphocytes 1.74 1.18-3.74 Absolute Monocytes BLD Auto 1.07 High 0.24-0.82 Absolute Eos Blood 0.09 0.04-0.54 Absolute Basophils 0.03 0.01-0.08 Neutrophil % 71.9 % High 34.0-70.0 Lymph% 16.5 % Low 20.0-52.0 Monocytes % 10.1 % 5.0-12.0 Eos % 0.9 % 0.7-7.0 Basophil% 0.3 % 0-1.2 Laboratory test finding 02/03/2018 Sedimentation Rate 22 Laboratory test finding 02/03/2018 C-Reactive Protein, Quant <pending> MMR Screen (CMC) 12/15/2017 Rubella Screen Immune Immune 1 Rubeola Measles Igg AB 12/15/2017 Rubeola (Measles) IgG Positive 2 Antibody Rubeola IgG Antibody Index 1.3 3 Mumps Igg 12/15/2017 Mumps Virus IgG Antibody Positive 4 Mumps IgG Antibody Index 2.6 5 Neisseria Meningitidis Igg 12/15/2017 Serotype A <0.5 ug/mL Serotype C <0.5 ug/mL Serotype Y <0.5 ug/mL Serotype W-135 <0.5 ug/mL 6 Complete Blood Count 12/22/2016 WBC 5.9 x10^3/UL 3.6-9.6 RBC 4.82 x10^6/UL 3.90-5.70 HGB 14.5 g/dL 12.1-17.2 HCT 43 % 36-50 MCV 89.0 fL 82.2-97.4 MCH 30.1 pg 27.6-33.3 MCHC 34.0 g/dL 33.0-35.5 RDW 13.9 % High 11.6-13.7 PLT 318 x10^3/UL 150-400 MPV 6.5 fL Low 7.4-10.4 Gran # 3.5 x10^3/UL 1.5-7.2 Lymph# 2.0 x10^3/UL 0.7-4.9 [place]# 0.4 x10^3/UL 0.1-0.9 Gran % 57.8 % 42.2-75.2 Lymph % 34.7 % 20.5-51.1 [place]% 7.5 % 1.7-9.3 Comprehensive Metabolic Prof 12/22/2016 Sodium 135 mEq/L 134-149 Potassium 4.9 mEq/L 3.6-5.5 Chloride 95 mEq/L 94-112 Carbon Dioxide 24 mEq/L 21-32 Glucose 109 mg/dL High 70-105 7 BUN 17 mg/dL 6-26 Creatinine 0.9 mg/dL 0.6-1.4 BUN/Creat Ratio 18.9 CALC 8.0-36.0 Calcium 10.1 mg/dL 8.6-10.2 Total Protein 7.2 g/dL 6.4-8.3 Albumin 4.9 g/dL 3.8-5.5 Globulin 2.3 g/dL 2.0-4.8 A/G Ratio 2.1 CALC 0.6-2.3 Alk. Phosphatase 75 U/L 22-95 Alt (SGPT) 58 U/L High 7-35 8 Ast (Sgot) 33 U/L 5-34 Total Bilirubin 0.6 mg/dL 0.2-1.3 GFR Non- >60 ml/min/1.73m^ >=60 GFR >60 ml/min/1.73m^ >=60 Lipid Profile 12/22/2016 Cholesterol 268 mg/dL High 120-200 Triglycerides 68 mg/dL 30-200 HDL Cholesterol 82 mg/dL High 30-70 LDL (Calculated) 172 CALC High 0-129 VLDL Cholesterol 14 mg/dL 0-50 HDL Risk Factor 3.3 CALC 0.0-4.4 Tox[facility]ure Select 13 (MW) 12/22/2016 Report Summary FINAL 9 PDF . Laboratory test finding 12/22/2016 PDF [id number] SEE IMAGE [facility]ox[facility]ure(R) Select 13 (MW) 12/11/2015 Report Summary FINAL 10, 11 PDF . 10 Laboratory test finding 12/11/2015 PDF [id number] SEE IMAGE 10 Tox[facility]ure(R) Select 13 (MW) 11/25/2015 Report Summary FINAL 10, 12 PDF . 10 Laboratory test finding 11/25/2015 PDF [id number] SEE IMAGE 10 Toxassure(R) Select 13 (MW) 10/10/2015 Report Summary FINAL 13, 14 PDF . 13 Laboratory test finding 10/10/2015 PDF [id number] SEE IMAGE 13 Hepatitis B Ángela AB 07/09/2015 Hepatitis B Surface AB Reactive Nonreactive Titer Hep B Surf AB Level 15.52 mIU/mL <12 15 Laboratory test finding 07/09/2015 Hepatitis C Antibody Nonreactive Nonreactive Hepatitis B Surface Ag Reactive (Prelim <SEE NOTE> Nonreactive 16 HIV 1/2 AB Evaluation Nonreactive Nonreactive 17 Hepatitis Bs Antigen Negative Negative 18 Laboratory test finding 07/04/2014 Hepatitis B Surface Nonreactive Nonreactive Antigen Hepatitis B Ángela AB 07/04/2014 Hepatitis B Surface AB Reactive Nonreactive Titer Hep B Surf AB Level 10.86 mIU/mL <12 19 Laboratory test finding 07/04/2014 Hepatitis C Antibody Nonreactive Nonreactive HIV 1/2 AB Evaluation 07/04/2014 HIV 1 2 Antibody Nonreactive Nonreactive 20 Comprehensive Metabolic 08/10/2013 Albumin 4.9 g/dL 3.8-5.5 Prof Alk. Phos. 62 U/L 22-95 Alt (SGPT) 18 U/L 10-40 Ast (Sgot) 16 U/L 5-34 BUN 15 mg/dL 6-26 Calcium 9.1 mg/dL 8.6-10.2 Chloride 97 mEq/L 94-112 Creatinine 1.1 mg/dL 0.6-1.4 Carbon Dioxide 25 mEq/L 21-32 Glucose 70 mg/dL 70-105 Sodium 137 mEq/L 134-149 Total Bilirubin 0.6 mg/dL 0.2-1.3 Total Protein 7.1 g/dL 6.3-8.1 Potassium 4.1 mEq/L 3.6-5.5 Globulin 2.2 g/dL 2.0-4.8 A/G Ratio 2.2 Calc 0.6-2.3 BUN/Creat Ratio 13.5 Calc 8.0-36.0 Urinalysis 02/08/2013 Urine Color Yellow Urine Appearance Clear Urine Specific Arabi 1.025 1.010-1.030 Urine Esterase Negative Negative Urine Nitrate Negative Negative Urine Urobilinogen Negative E.U./dL Negative Urine Protein Trace mg/dL Negative Urine pH 5.5 5-9 Urine Blood Negative Negative Urine Ketones Negative mg/dL Negative Urine Bilirubin Negative Negative Urine Glucose Trace mg/dL Negative Urine Drug SCR ED & 02/08/2013 Amphetamine Ur Screen None Detected None Detect Pain Clinic Barbiturates Urine Screen None Detected None Detect Benzodiazepine Urine Screen Positive None Detect Urine Cannabinoids Screen Positive None Detect Urine Cocaine Screen None Detected None Detect Urine Opiates Screen Positive None Detect Urine Phencyclidine Screen None Detected None Detect 21 CBC Auto Diff 02/07/2013 White Blood Count 9.9 10^3/uL 4.8-10.8 Red Blood Count 4.44 10^6/uL 4.0-5.4 Hemoglobin 12.9 g/dL Low 14.0-18.0 Hematocrit 40 % Low 42-52 Mean Corpuscular Volume 91 fL 80-94 Mean Corpuscular Hemoglobin 29 pg 27-31 Mean Corpuscular HGB Conc 32 g/dL 31-36 Red Cell Distribution Width 13 % 10.5-15 Platelet Count 254 10^3/uL 150-450 Mean Platelet Volume 8 um3 7.4-10.4 Abs Neutrophils 8.3 10^3/uL High 1.5-7.7 Abs Lymphocytes 0.7 10^3/uL Low 1.0-4.8 Abs Monocytes 0.6 10^3/uL 0-0.8 Abs Eosinophils 0.2 10^3/uL 0-0.6 Abs Basophils 0.2 10^3/uL 0-0.2 Abs Nucleated RBC 0 10^3/uL Granulocyte % 83.7 % High 38-83 Lymphocyte % 6.9 % Low 25-47 Monocyte % 6.2 % 1-9 Eosinophil % 1.5 % 0-6 Basophil % 1.7 % 0-2 Nucleated Red Blood Cells % 0 Comp Metabolic Panel 02/07/2013 Sodium 138 mmol/L 133-145 Potassium 3.6 mmol/L 3.5-5.0 Chloride 105 mmol/L 101-111 Co2 Carbon Dioxide 26.0 mmol/L 22-32 Anion Gap 7.0 mmol/L 2-11 Glucose 185 mg/dL High 70-100 Blood Urea Nitrogen 9 mg/dL 6-24 Creatinine 1.10 mg/dL 0.50-1.40 BUN/Creatinine Ratio 8.2 8-20 Calcium 8.8 mg/dL 8.1-9.9 Total Protein 6.3 g/dL 6.2-8.1 Albumin 4.0 g/dL 3.6-5.4 Globulin 2.3 g/dL 2-4 Albumin/Globulin Ratio 1.7 1-3 Total Bilirubin 0.7 mg/dL 0.4-1.5 Alkaline Phosphatase 50 U/L 30-110 Alt 17 U/L 14-54 Ast 16 U/L 12-42 Egfr Non- 77.6 >60 Egfr 99.8 >60 22 Laboratory test finding 02/07/2013 Acetaminophen < 10 g/mL Low 10-30 23 Alcohol < 10 mg/dL Less Than 10 24 Salicylate < 4.0 Less Than 30 TSH (Thyroid Stimulating Horm) 1.90 miu/mL 0.34-5.60 Urine Drug SCR ED & 07/26/2012 Amphetamine Ur Screen None Detected None Detect Pain Clinic Barbiturates Urine Screen None Detected None Detect Benzodiazepine Urine Screen None Detected None Detect Urine Cannabinoids Screen None Detected None Detect Urine Cocaine Screen None Detected None Detect Urine Opiates Screen None Detected None Detect Urine Phencyclidine Screen None Detected None Detect 25 Confirm Opiates (GC/MS) 07/26/2012 Urine Opiates Screen Negative 26 Urine Codeine Confirmation Negative ng/mL 27 Urine Hydrocodone Confirm Negative ng/mL 28 Urine Hydromorphone Confirm Negative ng/mL 29 Urine Morphine Confirm Negative ng/mL 30 Urine Oxycodone Confirm Negative ng/mL 31 Urine Opiates Interpretation Negative. 32 Urine Oxymorphone/Oxycodone 07/26/2012 Oxycodone Negative ng/mL Oxymorphone Negative ng/mL 33 Laboratory test finding 05/29/2012 CSF Glucose 52 mg/dL 50-75 34 CSF Total Protein 36.0 mg/dL 15-45 35 CSF Culture & Sensitivity 05/29/2012 CSF Culture Gram Stain (SEE NOTE) 36 Body Fluid Cell Count 05/29/2012 Body Fluid Source Cerebral Spinal Body Fluid Appearance Clear Body Fluid Color Colorless CSF Tube # 1 Body Fluid Volume 3 ML Body Fluid WBC 2 Body Fluid RBC 6 Body Fluid Lymph 26 Body Fluid Uinta 4 Body Fluid Total Cells Counted 30 Fluid Reviewed By MD (SEE NOTE) 37 Immunofixation (Electro) Serum 05/29/2012 Albumin (Pep) 3.57 GM/DL 3.0- 4.35 Alpha 1 Globulins 0.20 GM/DL 0.09-0.33 Alpha 2 Globulin 1.01 GM/DL 0.59-1.18 Beta Globulin 0.79 GM/DL 0.68-1.02 Gamma Globulin 0.53 GM/DL Low 0.76-1.60 Albumin % (Pep) 58.5 % 46-63 Alpha 1 Globulins % 3.3 % 1.2-5.3 Alpha 2 Globulin % 16.6 % 9-17 Beta Globulin % 13.0 % 10-16 Gamma Globulin % 8.7 % Low 12-22 Albumin/Globulin Ratio 1.4 0.9-2.0 Total Protein (Pep) 6.1 GM/DL Low 6.2-8.1 Spep Comments (SEE NOTE) 38 Serum Immunofixation (SEE NOTE) 39 Immunoglobulins Serum Quant 05/29/2012 Immunoglobulin G 557 mg/dL 767 - 1590 40 Immunoglobulin M 60 mg/dL 37 - 286 Immunoglobulin A 60 mg/dL 61 - 356 Multiple Sclerosis Evaluation 05/29/2012 CSF Oligoclonal Bands 0 bands Serum Oligoclonal Bands 0 bands Oligoclonal Proteins Interpret 0 bands <4 41 CSF Immunoglobulin G Index (SEE NOTE) 42 CSF Immunoglobulin G (SEE NOTE) 43 CSF Albumin (SEE NOTE) 44 CSF IgG/Albumin Ratio (SEE NOTE) 45 CSF Immunoglobulin G Synthesis (SEE NOTE) 46 Serum Immunoglobulin G (SEE NOTE) 47 Albumin, Serum (SEE NOTE) 48 Serum IgG/Albumin Ratio (SEE NOTE) 49 Miscellaneous Test 05/29/2012 Test Name B2 MICROGLOBULIN <SEE NOTE> 50 Result 1.50 MCG/ML Reference Range 0.70-1.80 CSF Lyme Disease Screen 05/29/2012 Lyme IgG WB Serum NEGATIVE Lyme IgM WB Serum NEGATIVE Lyme IgG WB CSF See Comment 51 Lyme IgG Results See Comment 52 CSF Immunoglobulin G (Igg) 05/29/2012 CSF Immunoglobulin G Index 0.67 <= 0.85 53 CSF Igg 1.7 mg/dL <=8.1 54 CSF Albumin 21.4 mg/dL <=27.0 55 CSF IgG/Albumin Ratio 0.08 <=0.21 56 CSF Immunoglobulin G Synthesis 1.74 mg/24h <=12 57 Immunoglobulin G 560 mg/dL 767 - 1590 58 Albumin 4540 mg/dL 59 Serum IgG/Albumin Ratio 0.12 <=0.40 60 Body Fluid Cell Count 05/29/2012 Body Fluid Source Cerebral Spinal Body Fluid Appearance Clear Body Fluid Color Colorless CSF Tube # 4 Body Fluid Volume 6 ML Body Fluid WBC 0 Body Fluid RBC 2 Body Fluid Lymph 1 Body Fluid Total Cells Counted 1 Fluid Reviewed By MD (SEE NOTE) 61 Laboratory test finding 05/29/2012 Cytology Nongyn RUN DATE: SEE NOTE> 62 Miscellaneous Test 05/29/2012 Test Name MYELIN BASIC PRO <SEE NOTE> 63 Result 0.7 64 Reference Range 0.0-1.2 ng/mL Laboratory test finding 05/29/2012 CSF VDRL Negative Negative 65 CSF Angiotension Conv Enz <4 ACEUnits 66 Miscellaneous Test 05/29/2012 Test Name B2 MICROGLOBULIN <SEE NOTE> 67 Result 1.50 MCG/ML Reference Range 0.70-1.80 CSF CMV Culture 05/29/2012 CMV PCR Specimen Source CSF CMV Rapid PCR Negative 68 Laboratory test finding 05/29/2012 CSF VDRL Negative Negative 69 CSF Angiotension Conv Enz <4 ACEUnits 70 CSF Lyme Disease Screen 05/29/2012 Lyme IgG WB Serum NEGATIVE Lyme IgM WB Serum NEGATIVE Lyme IgG WB CSF See Comment 71 Lyme IgG Results See Comment 72 CSF Immunoglobulin G (Igg) 05/29/2012 CSF Immunoglobulin G Index 0.67 <= 0.85 73 CSF Igg 1.7 mg/dL <=8.1 74 CSF Albumin 21.4 mg/dL <=27.0 75 CSF IgG/Albumin Ratio 0.08 <=0.21 76 CSF Immunoglobulin G Synthesis 1.74 mg/24h <=12 77 Immunoglobulin G 560 mg/dL 767 - 1590 78 Albumin 4540 mg/dL 79 Serum IgG/Albumin Ratio 0.12 <=0.40 80 CSF CMV Culture 05/29/2012 CMV PCR Specimen Source CSF CMV Rapid PCR Negative 81 Multiple Sclerosis Evaluation 05/29/2012 CSF Oligoclonal Bands 0 bands Serum Oligoclonal Bands 0 bands Oligoclonal Proteins Interpret 0 bands <4 82 CSF Immunoglobulin G Index (SEE NOTE) 83 CSF Immunoglobulin G (SEE NOTE) 84 CSF Albumin (SEE NOTE) 85 CSF IgG/Albumin Ratio (SEE NOTE) 86 CSF Immunoglobulin G Synthesis (SEE NOTE) 87 Serum Immunoglobulin G (SEE NOTE) 88 Albumin, Serum (SEE NOTE) 89 Serum IgG/Albumin Ratio (SEE NOTE) 90 Laboratory test finding 04/10/2012 C Reactive Protein 0.6 mg/dL High Less Than 0.5 Erythrocyte Sed Rate 15 MM/HR 0-15 Lyme Western Blot Specialty 04/10/2012 Lyme Igg Western Blot Negative Negative Lyme Igg Bands Detected p66, kDa () Lyme Igm Western Blot Negative Negative Lyme Igm Bands Detected No bands detecte <SEE NOTE> kDa () 91 Lyme Disease Interpretation . () 92 Lyme Screen 04/10/2012 Lyme Disease Serology Negative Negative 93 Urinalysis 04/06/2012 Ua Color YELLOW Yellow Appearance-Urine CLEAR Clear Specific Arabi-Ur 1.009 Low 1.010-1.030 Esterase-Urine NEGATIVE Negative Nitrite NEGATIVE Negative [id number] NEGATIVE Negative Protein-Urine NEGATIVE Negative PH-Urine 5.0 5-9 Blood-Urine NEGATIVE Negative Ketones-Urine NEGATIVE Negative Bilirubin-Ur NEGATIVE Negative Glucose-Urine NEGATIVE Negative CBC Auto Diff 04/06/2012 White Blood Count 6.1 CUMM 4.8-10.8 Red Cell Count 3.90 CUMM Low 4.6-6.2 Hemoglobin 11.8 g/dL Low 14.0-18.0 Hematocrit 34 % Low 42-52 Mean Corpuscular Volume 87 um3 80-94 Mean Corpuscular Hemoglob 30 pg 27-31 Mean Corpuscular HGB Cone 35 g/dL 32-36 Redcell Distribution WDTH 13 % 10.5-15 Platelet Count 200 CUMM 150-450 Mean Platelet Volume 8.1 um3 7.4-10.4 Gran % 49.8 % 38-83 Lymph % 23.8 % 20-45 Mononuclear % 16.4 % High 1-9 Eosinophil % 10.0 % High 0-6 Basophil % 0 % 0-2 Abs Lymphs 1.5 1.0-4.8 Abs Mononuclear 1.0 High 0-0.8 Absolute Neutrophil Count 3.0 1.5-7.7 Abs Eosinophils 0.6 0-0.6 Abs Basophils 0 0-0.2 Comp Metabolic Panel 04/06/2012 Sodium 137 mmol/L 135-145 Potassium 3.8 mmol/L 3.5-5.0 Chloride 108 mmol/L 101-111 Co2 (Carbon Dioxide) 24.0 mmol/L 22-32 Anion Gap 5.0 mmol/L 2-11 94 Glucose 95 mg/dL 70-100 BUN 20 mg/dL 6-24 Creatinine 1.3 mg/dL 0.50-1.40 One Over Creatinine 0.76 BUN/Creatinine Ratio 15.4 8-20 Calcium 9.2 mg/dL 8.1-9.9 Total Protein 5.9 GM/DL Low 6.2-8.1 Albumin 4.0 GM/DL 3.6-5.4 Globulin 1.9 GM/DL Low 2-4 Albumin/Globulin Ratio 2.1 1-3 Bilirubin Total 0.7 mg/dL 0.4-1.5 95 Alkaline Phosphatase 49 U/L 39-117 Alt (SGPT) 33 U/L 17-63 Ast (Sgot) 32 U/L 12-42 eGFR Non- 64.4 > 60 eGFR 82.8 > 60 96 Laboratory test 04/06/2012 Urine Culture <SEE 97 finding Sensitivi NOTE> Urinalysis 03/30/2012 Ua Color YELLOW Yellow Appearance-Urine CLEAR Clear Specific Arabi-Ur 1.014 1.010-1.030 Esterase-Urine NEGATIVE Negative Nitrite NEGATIVE Negative [id number] NEGATIVE Negative Protein-Urine NEGATIVE Negative PH-Urine 6.5 5-9 Blood-Urine NEGATIVE Negative Ketones-Urine NEGATIVE Negative Bilirubin-Ur NEGATIVE Negative Glucose-Urine NEGATIVE Negative Protime 03/30/2012 Inr 0.91 0.88-1.13 98 Protime 10.8 SEC 10.3-13.5 99 Laboratory test finding 03/30/2012 PTT (Aptt) 28.9 SEC 25.1-38.5 Comp Metabolic Panel 03/30/2012 Sodium 134 mmol/L Low 135-145 Potassium 4.5 mmol/L 3.5-5.0 Chloride 104 mmol/L 101-111 Co2 (Carbon Dioxide) 24.0 mmol/L 22-32 Anion Gap 6.0 mmol/L 2-11 100 Glucose 95 mg/dL 70-100 BUN 14 mg/dL 6-24 Creatinine 1.1 mg/dL 0.50-1.40 One Over Creatinine 0.90 BUN/Creatinine Ratio 12.7 8-20 Calcium 9.3 mg/dL 8.1-9.9 Total Protein 5.7 GM/DL Low 6.2-8.1 Albumin 4.0 GM/DL 3.6-5.4 Globulin 1.7 GM/DL Low 2-4 Albumin/Globulin Ratio 2.4 1-3 Bilirubin Total 0.6 mg/dL 0.4-1.5 101 Alkaline Phosphatase 57 U/L 39-117 Alt (SGPT) 26 U/L 17-63 Ast (Sgot) 27 U/L 12-42 eGFR Non- 78.1 > 60 eGFR 100.4 > 60 102 Laboratory test finding 03/30/2012 Erythrocyte Sed Rate 9 MM/HR 0-15 CBC Auto Diff 03/30/2012 White Blood Count 6.2 CUMM 4.8-10.8 Red Cell Count 4.34 CUMM Low 4.6-6.2 Hemoglobin 13.2 g/dL Low 14.0-18.0 Hematocrit 38 % Low 42-52 Mean Corpuscular Volume 88 um3 80-94 Mean Corpuscular Hemoglob 30 pg 27-31 Mean Corpuscular HGB Cone 35 g/dL 32-36 Redcell Distribution WDTH 13 % 10.5-15 Platelet Count 234 CUMM 150-450 Mean Platelet Volume 8.3 um3 7.4-10.4 Gran % 47.7 % 38-83 Lymph % 33.4 % 20-45 Mononuclear % 11.6 % High 1-9 Eosinophil % 6.2 % High 0-6 Basophil % 1.1 % 0-2 Abs Lymphs 2.1 1.0-4.8 Abs Mononuclear 0.7 0-0.8 Absolute Neutrophil Count 3.0 1.5-7.7 Abs Eosinophils 0.4 0-0.6 Abs Basophils 0.1 0-0.2 Laboratory test 03/30/2012 C Reactive Protein 0.9 mg/dL High Less Than finding 0.5 Laboratory test 07/08/2010 Ferritin 57 ng/mL 22-340 103 finding Laboratory test 07/08/2010 Ceruloplasmin 20.4 mg/dL 16.2-35.6 104, 105 finding Hep C Abs 07/08/2010 Hep C Antibody NON-REACTIVE Non-Reactiv 104 e Hep C S/Co Ratio <0.0 0.0-0.9 104 Laboratory test finding 07/08/2010 Hep B Surface NON-REACTIVE Non- Reactive 104 Antigen Comprehensive Metabolic 06/24/2010 Albumin 4.5 g/dL 3.8-5.5 Prof Alk. Phos. 44 U/L 22-95 Alt (SGPT) 50 U/L High 10-40 Ast (Sgot) 48 U/L High 5-34 BUN 16 mg/dL 6-26 Calcium 8.6 mg/dL 8.6-10.2 Chloride 106 mEq/L 94-112 Creatinine 1.0 mg/dL 0.6-1.4 Carbon Dioxide 22 mEq/L 21-32 Glucose 73 mg/dL 70-105 Sodium 140 mEq/L 134-149 Total Bilirubin 0.5 mg/dL 0.2-1.3 Total Protein 6.6 g/dL 6.3-8.1 Potassium 3.6 mEq/L 3.6-5.5 Globulin 2.1 g/dL 2.0-4.8 A/G Ratio 2.2 Calc 0.6-2.2 BUN/Creat Ratio 16.5 Calc 8.0-36.0 Lipid Profile 06/24/2010 Cholesterol 128 mg/dL 120-200 HDL 57 mg/dL 30-70 Triglycerides 74 mg/dL 30-200 HDL Risk Factor 2.2 CALC Low 4.2-7.0 LDL (Calculated) 56 CALC 0-129 VLDL (Calculated) 15 mg/dL 0-50 Laboratory test finding 06/24/2010 TSH 0.62 mIU/L 0.50-6.00 Laboratory test finding 06/24/2010 Testosterone, Serum 284 ng/dL 280-800 CBC (Fma) 06/24/2010 WBC 6.6 3.6-9.6 RBC 4.18 3.90-5.70 Hemoglobin (Fma/CMC/CTX) 12.9 g/dL 12.1 - 17.2 Hematocrit (Fma/CMC/CTX) 38.4 % 36.1 - 50.3 Platelets 266 10^3/ul 150-400 Lymph% 18.1 Low 20.5-51.1 Mixed% 3.7 Neutrophils % 78.2 Mean Corpuscular Vol 92 82.2-97.4 Mean Corpuscular Hemoglobin 30.8 27.6-33.3 Mean Corpuscular Hemo Concen 33.5 33.0-36.0 RDW 11.0 Low 11.6-13.7 Mean Platelet Volume 8.0 7.4-10.4 Ua - Non Micro ([facility]) 03/11/2003 Appearance CLEAR LT YELLOW Glucose NEGATIVE Bilirubin NEGATIVE Ketones NEGATIVE SP Grav 1.010 Blood NEGATIVE PH 5.5 Protein NEGATIVE Urobil 0.2 Nitrite NEGATIVE Leukocytes NEGATIVE CBC Electronic ([facility]) 03/11/2003 WBC 4.4 3.6-9.6 Lymphocytes 29.7 % 20.5 - 51.1 Monocytes 9.0 % 1.7-9.3 Granulocytes 61.3 % 42.2 - 75.2 Lymphocytes 1.3 10^3/uL 0.7 - 4.9 Monocytes 0.4 10^3/uL 0.1 - 0.9 Granulocytes 2.7 10^3/uL 1.5 - 7.2 RBC 4.79 3.90-5.70 Hemoglobin (Fma/CMC/CTX) 14.6 g/dL 12.1 - 17.2 Hematocrit (a/CMC/CTX) 42.6 % 36.1 - 50.3 Mean Corpuscular Vol 88.9 82.2-97.4 Mean Corpuscular Hemaglobin 30.5 27.6-33.3 Mean Corpuscular Hemo Concen 34.3 33.0-34.8 RDW 12.3 11.6-13.7 Platelets 180. 10^3/ul 150-400 Mean Platelet Volume 7.8 7.4-10.4 Comp Metabolic ([facility]) 03/11/2003 Glucose, Serum (a/CMC/CTX) 89 mg/dL 70- 118 BUN (a/CMC/Centrex) 12 mg/dL 7-26 Creatinine (a/CMC/CTX) 0.9 mg/dL 0.6-1.4 BUN/Creatinin Ratio 13.5 8.0-36 Sodium 137 134-149 Potassium 3.9 3.6-5.5 Chloride 100 mEq/L 94-112 Co2 23 21-32 Calcium (Fma/CMC/Centrex) 9.3 mg/dL 8.6-10.0 Total Protein 6.7 g/dL 6.3-8.1 Albumin (a/CMCC/Centrex) 4.5 3.8-5.5 Globulin 2.2 2.0-4.8 A/G Ratio (a/CMC/Centrex) 2.1 0.6-2.2 Alkaline Phosphatase (F/C/CTX) 75 U/L 30-110 Alt (SGPT) 27 10-40 Ast (Sgot) (Fma/CMC/Centrex) 20 U/mL 5-34 Bilirubin, Total 0.4 mg/dL 0.2-1.3 1 [id number] Results suggest response to immunization or prior exposure to the virus. REFERENCE VALUE Vaccinated: Positive (>=1.1 AI) Unvaccinated: Negative (<=0.8 AI) 3 Test Performed by: [place] [address] 4 Results suggest response to immunization or prior exposure to the virus. REFERENCE VALUE Vaccinated: Positive (>=1.1 AI) Unvaccinated: Negative (<=0.8 AI) 5 Test Performed by: [place] [address] 6 REFERENCE RANGES (pre-vaccination): Serogroup A <4.0 ug/mL Serogroup C <5.0 ug/mL Serogroup Y <4.0 ug/mL Serogroup W-135 <3.0 ug/mL This assay measures serum IgG antibodies recognizing polysaccharide antigens from the four Neisseria meningitidis serogroups included in the licensed meningococcal vaccine. The meningococcal vaccine response is best evaluated by testing pre-vaccination and post-vaccination samples in parallel. A two-fold or greater increase for at least two serogroups is expected when comparing post-vaccination to pre-vaccination results. N. meningitidis IgG levels peak approximately one month post-vaccination, but decline markedly by two years. This test was developed and its analytical performance characteristics have been determined by [facility]. It has not been cleared or approved by FDA. This assay has been validated pursuant to the CLIA regulations and is used for clinical purposes. Test Performed by: [facility] [address] [place] [address] 7 NON-FASTING 8 RESULTS VERIFIED BY REPEAT ANALYSIS 9 TOXASSURE SELECT 13 (MW) Test Result Flag Units Drug Absent but Declared for Prescription Verification Amphetamine Not Detected UNEXPECTED ng/mg creat Oxycodone Not Detected UNEXPECTED ng/mg creat Test Result Flag Units Ref Range Creatinine 197 mg/dL >=20 Declared Medications: The flagging and interpretation on this report are based on the following declared medications. Unexpected results may arise from inaccuracies in the declared medications. Note: The testing scope of this panel includes these medications: Amphetamine Amphetamine (Dextroamphetamine) Oxycodone Note: The testing scope of this panel does not include following reported medications: Bupropion (Wellbutrin) Nicotine Pantoprazole Trazodone For clinical consultation, please call . 10 1 urine temp cup 11 TOXASSURE SELECT 13 (MW) Test Result Flag Units Drug Present Lorazepam 1396 ng/mg creat Source of lorazepam is a scheduled prescription medication. Oxycodone 546 ng/mg creat Oxymorphone 294 ng/mg creat Noroxycodone 2744 ng/mg creat Noroxymorphone 138 ng/mg creat Sources of oxycodone are scheduled prescription medications. Oxymorphone, noroxycodone, and noroxymorphone are expected metabolites of oxycodone. Oxymorphone is also available as a scheduled prescription medication. Test Result Flag Units Ref Range Creatinine 71 mg/dL >=20 Declared Medications: Medication list was not provided. For clinical consultation, please call . 12 TOXASSURE SELECT 13 (MW) Test Result Flag Units Drug Present Lorazepam 76 ng/mg creat Source of lorazepam is a scheduled prescription medication. Test Result Flag Units Ref Range Creatinine 300 mg/dL >=20 Declared Medications: Medication list was not provided. For clinical consultation, please call . 13 1 STERILE CUP WITH URINE 14 TOXASSURE SELECT 13 (MW) Test Result Flag Units Drug Present and Declared for Prescription Verification Lorazepam 3518 EXPECTED ng/mg creat Source of lorazepam is a scheduled prescription medication. Drug Absent but Declared for Prescription Verification Oxycodone Not Detected UNEXPECTED ng/mg creat Test Result Flag Units Ref Range Creatinine 73 mg/dL >=20 Declared Medications: The flagging and interpretation on this report are based on the following declared medications. Unexpected results may arise from inaccuracies in the declared medications. Note: The testing scope of this panel includes these medications: Lorazepam Oxycodone Note: The testing scope of this panel does not include following reported medications: Bupropion (Wellbutrin) Methylphenidate (Concerta) Pantoprazole For clinical consultation, please call . 15 This assay does not differentiate between reactivity due to a vaccine-induced immune response or an immune response induced by infection with HBV. 16 Reactive (Prelim) Initial screening has determined that additional testing is required. Specimen has been sent to the reference laboratory for confirmation testing. 17 It is recognized that currently available assays for the detection of antibodies to HIV-1 and/or HIV-2 may not detect all infected individuals. HIV antibodies may be undetectable in some stages of the infection and in some clinical conditions. The performance of this assay has not been established for populations of infants or children. Assayed by Chemiluminescence Microparticle Immunoassay on the Siemens Advia Centaur CP. Values obtained with different methods or kits cannot be used interchangeably.The diagnostic specificity of the ADVIA Centaur 1/O/2 Enhanced assay in the low risk population was 99.90% (6052/6058) with a 95% confidence interval of 99.78 to 99.96%. 18 Test Performed by: [address] [address] [employer] Former: Oscar Butler II, M.D., Ph.D. 19 This assay does not differentiate between reactivity due to a vaccine-induced immune response or an immune response induced by infection with HBV. 20 It is recognized that currently available assays for the detection of antibodies to HIV-1 and/or HIV-2 may not detect all infected individuals. HIV antibodies may be undetectable in some stages of the infection and in some clinical conditions. The performance of this assay has not been established for populations of infants or children. Assayed by Chemiluminescence Microparticle Immunoassay on the Siemens Advia Centaur CP. Values obtained with different methods or kits cannot be used interchangeably.The diagnostic specificity of the ADVIA Centaur 1/O/2 Enhanced assay in the low risk population was 99.90% (6052/6058) with a 95% confidence interval of 99.78 to 99.96%. 21 The urine specimen was tested at the listed cutoffs: Drug class test level (ng/ml) Amphetamines 300 Barbituates 200 Benzodiazepine metabolites 200 Cocaine metabolites 300 Cannabinoids 25 Opiates 200 Pcp 25 This is a screening procedure. Positive results are not confirmed. Specimen was received without chain of custody. Results should be used for medical purposes only. 22 Because ethnic data is not always readily available, this report includes an eGFR for both -Americans and non- Americans. The National Kidney Disease Education Program (NKDEP) does not endorse the use of the MDRD equation for patients that are not between the ages of 18 and 70, are , have extremes of body size, muscle mass, or nutritional status, or are non- or non-. According to the National Kidney Foundation, irrespective of diagnosis, the stage of the disease is based on the level of kidney function: Stage Description GFR(mL/min/1.73 m(2)) 1 Kidney damage with normal or decreased GFR 90 2 Kidney damage with mild decrease in GFR 60-89 3 Moderate decrease in GFR 30-59 4 Severe decrease in GFR 15-29 5 Kidney failure <15 (or dialysis) 23 Toxic levels: greater than 150 mcg/ml @ 4hr post ingest Greater than 50 mcg/ml @ 12hr post ingest The detection limit for acetaminophen is 10.0 mcg/ml . Values less than 10.0 mcg/ml cannot be accurately measured. 24 The detection limit for Ethanol is 10.0 mg/dl . Values less than 10.0 mg/dl cannot be accurately measured. 25 The urine specimen was tested at the listed cutoffs: Drug class test level (ng/ml) Amphetamines 300 Barbituates 200 Benzodiazepine metabolites 200 Cocaine metabolites 300 Cannabinoids 25 Opiates 200 Pcp 25 This is a screening procedure. Positive results are not confirmed. Specimen was received without chain of custody. Results should be used for medical purposes only. 26 -- REFERENCE VALUE -- Cutoff: 300 27 -- REFERENCE VALUE -- Cutoff: 100 28 -- REFERENCE VALUE -- Cutoff: 100 29 -- REFERENCE VALUE -- Cutoff: 100 30 -- REFERENCE VALUE -- Cutoff: 100 31 -- REFERENCE VALUE -- Cutoff: 100 32 This report is intended for use in clinical monitoring and management of patients. It is not intended for use in employment-related testing. Test Performed by: [place] [id number] [employer] Former: Roddy Del Castillo III, M.D. 33 Reference ranges have not been established for urine specimens. This specimen was handled by [employer] as a forensic specimen under chain of custody protocol. Test Performed by: [employer]. [address] [place] [address] 34 TUBES NOT SPECIFIED BY DOCTOR. 35 TUBES NOT SPECIFIED BY DOCTOR. 36 RUN DATE: 06/02/12 [facility] LAB LIVE PAGE 1 RUN TIME: [address] [place] [id number] Specimen Inquiry Name: PABLO GOLDBERG : [address]: Byron White MD Acct: [id number] Unit: [id number] AGE: 31 Location: Re05/29/12 SEX: M Status: REG REF SPEC: [id number] EFREN: 05/29/12-[address]: Byron White MD REQ: [id number] RECD: 05/29/12 STATUS: LEIDA OCASIO DR: _ SOURCE: CSF SPDESC: ORDERED: CSF Cult/GS Procedure Result Verified Site CSF Gram Stain Final 05/29/12- 1504 ML No Polys Observed 1+ Nucleated Cells No Organisms Seen Preparation By Cytospin Smear CSF Culture Final 06/02/12- 0839 ML No Growth Day 4 END OF REPORT * ML=Testing performed at Main Lab DEPARTMENT OF PATHOLOGY, [address] [place] [address] Alec Carvajal M.D. Director [facility] Permit #[id number] 37 Paucicellular specimen. 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 Suggest specific immunoglobulin determinations. 39 Normal serum immunofixation electrophoretic pattern. No monoclonal protein detected. 40 Test Performed by: [address] [address] [employer] Former: Roddy Del Castillo III, M.D. R 41 The oligoclonal band assay detected 3 or less IgG bands in the CSF, which are not present in the serum. This is a Negative result. R 42 Test cancelled due to absorption 43 Test cancelled due to absorption 44 Test cancelled due to absorption 45 Test cancelled due to absorption 46 Test cancelled due to absorption 47 Test cancelled due to absorption 48 Test cancelled due to absorption 49 Test cancelled due to absorption 50 B2 MICROGLOBULIN,CSF 51 RESULT: ANTIBODY NOT DETECTED R 52 RESULT: ANTIBODY NOT DETECTED REVISED RESULTS Note: This result is for Lyme IgM (CSF). Test results have not changed. REFERANCE RANGE FOR SERUM: NEGATIVE REFERANCE RANGE FOR CSF: ANTIBODY NOT DETECTED Lyme disease is caused by Borrelia burgdorferi. CDC criteria for a positive Lyme IgG Western blot for serum require the presence of IgG to at least 5 of 10 specific borrelial proteins (18Kd, 23Kd, 30Kd, 39Kd, 41Kd, 45Kd, 58Kd, 66Kd, 93Kd). CDC criteria for a positive IgM Western blot for serum require the presence of IgM to at least 2 of 3 specific borrelial proteins (23Kd, 39Kd, 41Kd). The presence of 1 to 4 IgG bands or one IgM band (indeterminate results) may indicate recent exposure to B. burgdorferi and may warrant further serologic testing if clinically indicated. Reactivity to the 41Kd band may be observed in sera from normal individuals, as well as sera containing anti-nuclear antibodies (BARB). In rare instances, reactivity to B. burgdorferi proteins may represent crossreactive antibodies induced by infection with other spirochetes, such as Treponema pallidum. No interpretive criteria for Lyme Western blots have been established for CSF. The presence of Lyme IgG and/or IgM in CSF may represent either compartmental antibody production or transudation of plasma antibody. Detection of Lyme antibodies in CSF but not a paired serum sample most likely represents false positive reactivity. REVISED REPORT, Previously reported as: ANTIBODY NOT DETECTED (Reported 06/02/2012 18:53) Test Performed by: [facility]. [address] [place] [address] --- 08/24/12 1055 --- Lyme IgG Result previously reported as: See Comment RESULT: ANTIBODY NOT DETECTED REFERANCE RANGE FOR SERUM: NEGATIVE REFERANCE RANGE FOR CSF: ANTIBODY NOT DETECTED Lyme disease is caused by Borrelia burgdorferi. CDC criteria for a positive Lyme IgG Western blot for serum require the presence of IgG to at least 5 of 10 specific borrelial proteins (18Kd, 23Kd, 30Kd, 39Kd, 41Kd, 45Kd, 58Kd, 66Kd, 93Kd). CDC criteria for a positive IgM Western blot for serum require the presence of IgM to at least 2 of 3 specific borrelial proteins (23Kd, 39Kd, 41Kd). The presence of 1 to 4 IgG bands or one IgM band (indeterminate results) may indicate recent exposure to B. burgdorferi and may warrant further serologic testing if clinically indicated. Reactivity to the 41Kd band may be observed in sera from normal individuals, as well as sera containing anti-nuclear antibodies (BARB). In rare instances, reactivity to B. burgdorferi proteins may represent crossreactive antibodies induced by infection with other spirochetes, such as Treponema pallidum. No interpretive criteria for Lyme Western blots have been established for CSF. The presence of Lyme IgG and/or IgM in CSF may represent either compartmental antibody production or transudation of plasma antibody. Detection of Lyme antibodies in CSF but not a paired serum sample most likely represents false positive reactivity. Test Performed by: [facility]. [address] [place] [address] R 53 Test cancelled due to absorption R --- 05/31/12 1544 --- CSF IgG Index previously reported as: Test not performed Test cancelled due to absorption R 54 Test cancelled due to absorption R --- 05/31/12 1544 --- CSF IGG previously reported as: Test not performed Test cancelled due to absorption R 55 Test cancelled due to absorption R --- 05/31/12 1544 --- CSF Albumin previously reported as: Test not performed Test cancelled due to absorption R 56 Test cancelled due to absorption R --- 05/31/12 1544 --- CSF IgG/Albumin previously reported as: Test not performed Test cancelled due to absorption R 57 Test cancelled due to absorption R --- 05/31/121543 --- CSF IgG Rate previously reported as: Test not performed Test cancelled due to absorption R 58 Test cancelled due to absorption R --- 05/31/121543 --- IgG previously reported as: Test not performed Test cancelled due to absorption R 59 Test cancelled due to absorption R -- REFERENCE VALUE -- 3200 - 4800 R --- 05/31/121543 --- Albumin previously reported as: Test not performed Test cancelled due to absorption R 60 Test cancelled due to absorption Test Performed by: [place] [address] [employer]: Roddy Del Castillo III, M.D. R Test Performed by: [place] [address] [employer]: Roddy Del Castillo III, M.D. R --- 05/31/121543 --- IgG/Albumin Rat previously reported as: Test not performed Test cancelled due to absorption Test Performed by: [place] [address] [employer]: Roddy Del Castillo III, M.D. R 61 Paucicellular specimen. Reviewed by Feliberto Cruz MD 62 RUN DATE: 05/30/12 [facility] LAB LIVE PAGE 1 RUN TIME: [address] [place] [id number] Specimen Inquiry Name: ASHLYNPABLO Chet : [address]: Christopher COLBERT ,Byron Moreira Acct: [id number] Unit: [id number] AGE: 31 Location: Re05/29/12 SEX: M Status: REG REF SPEC: [id number] EFREN: 05/29/12-1299 [facility] DR: Byron White MD REQ: [id number] RECD: 05/30/12 STATUS: ARTURO OCASIO DR: _ ORDERED: THIN PREP NON G FINAL DIAGNOSIS CEREBROSPINAL FLUID: Few mature appearing lymphocytes present. 1. Cerebrospinal Fluid - TUBE #4 GROSS DESCRIPTION 7 mls of clear CSF in tube #4 Signed (signature on file) Alec Carvajal MD 1522 END OF REPORT * ML=Testing performed at Main Lab DEPARTMENT OF PATHOLOGY, [address] [place] [address] Alec Carvajal M.D. Director [facility] Permit #[id number] MYELIN BASIC PROTEIN 64 Results for this test are for research purposes only by the assay's baker test. The performace characteristics of this product have not been established. Results should not be used as a diagnostic procedure without confirmation of the diagnosis by another medically established diagnostic product or procedure. Test performed by: [facility] [address] 65 Positive results by this test are not confirmed with a treponemal-specific assay. Test Performed by: [address] [address] [employer]: Roddy Del Castillo III, M.D. R 66 REFERENCE RANGE: <4 KADE Units INTERPRETIVE CRITERIA: <4 KADE Units Normal Level > or=4 KADE Units Increased Level CSF levels of angiotensin converting enzyme (KADE) are increased in approximately 50% of patients with neurosarcoidosis, but in less than 10% of systemic sarcoidosis patients without neurologic manifestations. This test was developed and its performance characteristics have been determined by [facility]. Performance characteristics refer to the analytical performance of the test. Test Performed by: [facility] [address] [place] [address] R 67 B2 MICROGLOBULIN,CSF 68 -- REFERENCE VALUE -- Not applicable Analyte Specific Reagent. This test was developed and its performance characteristics determined by [facility]. It has not been cleared or approved by the U.S. Food and Drug Administration. Test Performed by: [place] [address] [employer]: Roddy Del Castillo III, M.D. R 69 Positive results by this test are not confirmed with a treponemal-specific assay. Test Performed by: [place] [address] [employer]: Roddy Del Castillo III, M.D. R 70 REFERENCE RANGE: <4 KADE Units INTERPRETIVE CRITERIA: <4 KADE Units Normal Level > or=4 KADE Units Increased Level CSF levels of angiotensin converting enzyme (KADE) are increased in approximately 50% of patients with neurosarcoidosis, but in less than 10% of systemic sarcoidosis patients without neurologic manifestations. This test was developed and its performance characteristics have been determined by [facility]. Performance characteristics refer to the analytical performance of the test. Test Performed by: [facility] [address] [place] [address] R 71 RESULT: ANTIBODY NOT DETECTED R 72 RESULT: ANTIBODY NOT DETECTED REFERANCE RANGE FOR SERUM: NEGATIVE REFERANCE RANGE FOR CSF: ANTIBODY NOT DETECTED Lyme disease is caused by Borrelia burgdorferi. CDC criteria for a positive Lyme IgG Western blot for serum require the presence of IgG to at least 5 of 10 specific borrelial proteins (18Kd, 23Kd, 30Kd, 39Kd, 41Kd, 45Kd, 58Kd, 66Kd, 93Kd). CDC criteria for a positive IgM Western blot for serum require the presence of IgM to at least 2 of 3 specific borrelial proteins (23Kd, 39Kd, 41Kd). The presence of 1 to 4 IgG bands or one IgM band (indeterminate results) may indicate recent exposure to B. burgdorferi and may warrant further serologic testing if clinically indicated. Reactivity to the 41Kd band may be observed in sera from normal individuals, as well as sera containing anti-nuclear antibodies (BARB). In rare instances, reactivity to B. burgdorferi proteins may represent crossreactive antibodies induced by infection with other spirochetes, such as Treponema pallidum. No interpretive criteria for Lyme Western blots have been established for CSF. The presence of Lyme IgG and/or IgM in CSF may represent either compartmental antibody production or transudation of plasma antibody. Detection of Lyme antibodies in CSF but not a paired serum sample most likely represents false positive reactivity. Test Performed by: [facility], [employer]. [address] [place] [address] R 73 Test cancelled due to absorption R --- 05/31/12 1544 --- CSF IgG Index previously reported as: Test not performed Test cancelled due to absorption R 74 Test cancelled due to absorption R --- 05/31/12 1544 --- CSF IGG previously reported as: Test not performed Test cancelled due to absorption R 75 Test cancelled due to absorption R --- 05/31/12 1544 --- CSF Albumin previously reported as: Test not performed Test cancelled due to absorption R 76 Test cancelled due to absorption R --- 05/31/12 1544 --- CSF IgG/Albumin previously reported as: Test not performed Test cancelled due to absorption R 77 Test cancelled due to absorption R --- 05/31/12 1544 --- CSF IgG Rate previously reported as: Test not performed Test cancelled due to absorption R 78 Test cancelled due to absorption R --- 05/31/12 1544 --- IgG previously reported as: Test not performed Test cancelled due to absorption R 79 Test cancelled due to absorption R -- REFERENCE VALUE -- 3200 - 4800 R --- 05/31/12 1544 --- Albumin previously reported as: Test not performed Test cancelled due to absorption R 80 Test cancelled due to absorption Test Performed by: [address] [address] [employer]: Roddy Del Castillo III, M.D. R Test Performed by: [place] [address] [employer]: Roddy Del Castillo III, M.D. R --- 05/31/12 1544 --- IgG/Albumin Rat previously reported as: Test not performed Test cancelled due to absorption Test Performed by: [place] [address] [employer]: Roddy Del Castillo III, M.D. R 81 -- REFERENCE VALUE -- Not applicable Analyte Specific Reagent. This test was developed and its performance characteristics determined by [facility]. It has not been cleared or approved by the U.S. Food and Drug Administration. Test Performed by: [place] [address] [employer]: Roddy Del Castillo III, M.D. R 82 The oligoclonal band assay detected 3 or less IgG bands in the CSF, which are not present in the serum. This is a Negative result. R 83 Test cancelled due to absorption 84 Test cancelled due to absorption 85 Test cancelled due to absorption 86 Test cancelled due to absorption 87 Test cancelled due to absorption 88 Test cancelled due to absorption 89 Test cancelled due to absorption 90 Test cancelled due to absorption 91 No bands detected 92 Specific serologic response to B. burgdorferi infection is not detected, but cannot rule out early infection during which low or undetectable antibody levels to B. burgdorferi may be present. If clinically indicated, a new serum specimen should be submitted in 7-14 days. CDC criteria require >=5 bands for IgG or >=2 bands for IgM for the Western blot to be considered positive. Bands (e.g.,p41) may be detected in patients without Lyme disease, and patterns not meeting the CDC criteria should be interpreted with caution. Western blot should be ordered only on specimens that are positive or equivocal by a FDA-licensed Lyme disease antibody screening test (e.g., EIA). Test performed by [facility]. Test Performed by: [place] [address] [employer]: Roddy Del Castillo III, M.D. 93 Serologic response to B. burgdorferi infection is not detected, but cannot rule out early infection during which low or undetectable antibody levels to B. burgdorferi may be present. If clinically indicated, a new serum specimen should be submitted in 7-14 days. Test Performed by: [facility] - [address] [address] [employer]: Roddy Del Castillo III, M.D. 94 Anion gap measurement may be of limited value in the presence of any alkalosis, especially in a combined acid base disorder. . 95 A metabolite of Naproxen, O-desmethylnaproxen, has been shown to interfere with the Jendrassik-[place] method for measuring total bilirubin. Samples from patients who have taken Naproxen have shown spurious elevation in total bilirubin levels. 96 Because ethnic data is not always readily available, this report includes an eGFR for both -Americans and non- Americans. The National Kidney Disease Education Program (NKDEP) does not endorse the use of the MDRD equation for patients that are not between the ages of 18 and 70, are , have extremes of body size, muscle mass, or nutritional status, or are non- or non-. According to the National Kidney Foundation, irrespective of diagnosis, the stage of the disease is based on the level of kidney function: Stage Description GFR(mL/min/1.73 m(2)) 1 Kidney damage with normal or decreased GFR 90 2 Kidney damage with mild decrease in GFR 60-89 3 Moderate decrease in GFR 30-59 4 Severe decrease in GFR 15-29 5 Kidney failure <15 (or dialysis) 97 RUN DATE: 04/08/12 [facility] NMI LIVE PAGE 1 RUN TIME: 956 Specimen Inquiry RUN USER: INTERFACE Name: PABLO GOLDBERG Status: VERONICA ER Re04/06/12 Age/Sex: 31/M Unit#: [id number] Location: : 80 SPEC #: [id number] ERFEN: 04/06/12-1540 STATUS: COMP REQ #: [id number] RECD: 04/06/12-1601 [facility] DR: Shital Herrera DO SOURCE: URINE ENTR: 04/06/12-[address]: Dipak Yee MD [facility]: ORDERED: URINE C S COMMENTS: SPECIMEN DESCRIPTION: URINE, CLEAN CATCH ACT WKST: UR 04/08/12 #1 Procedure Result Verified Site > URINE CULTURE SENSITIVI Final 04/08/12- 0957 ML FINAL: NO GROWTH DAY 2 (<1,000 CFU/mL) ML - [facility] State Permit #[id number] [facility] [place] [address] DEPARTMENT OF PATHOLOGY, [facility] [address] [facility] Permit #[id number] Benito You M.D. [employer] 98 Recommended INR for Patients on Oral Anticoagulants Prophylaxis 2.0 - 3.0 Treatment of thrombosis 2.0 - 3.0 Prevention of embolism 2.0 - 3.0 Prevention of embolism from prosthetic heart valves 2.5 - 3.5 99 DIAGNOSIS,TREATMENT,AND THERAPY MUST BE BASED ON THE INR VALUE ALONE. 100 Anion gap measurement may be of limited value in the presence of any alkalosis, especially in a combined acid base disorder. . 101 A metabolite of Naproxen, O-desmethylnaproxen, has been shown to interfere with the Jendrassik-[place] method for measuring total bilirubin. Samples from patients who have taken Naproxen have shown spurious elevation in total bilirubin levels. 102 Because ethnic data is not always readily available, this report includes an eGFR for both -Americans and non- Americans. The National Kidney Disease Education Program (NKDEP) does not endorse the use of the MDRD equation for patients that are not between the ages of 18 and 70, are , have extremes of body size, muscle mass, or nutritional status, or are non- or non-. According to the National Kidney Foundation, irrespective of diagnosis, the stage of the disease is based on the level of kidney function: Stage Description GFR(mL/min/1.73 m(2)) 1 Kidney damage with normal or decreased GFR 90 2 Kidney damage with mild decrease in GFR 60-89 3 Moderate decrease in GFR 30-59 4 Severe decrease in GFR 15-29 5 Kidney failure <15 (or dialysis) 103 FASTING 104 FASTING; SPLIT SPECIMEN; 1 FROZEN SERUM 3 SST TUBES 105 Effective August 03, 2010, Ceruloplasmin reference interval will be changing to: Female: 16.0 - 45.0 mg/dL Male: 15.0 - 30.0 mg/dL Procedures Date CPT Code Description Status 08/06/2015 33364 Pulse Oximetry Completed 09/13/2011 82554 Pulse Oximetry Completed Encounters Type Date Location Provider CPT E/M Dx Office Visit 12/09/2017 3:30p [facility] RENY Sanchez [address] M77.11 F90.0 G47.00 G47.33 R04.2 J30.9 R49.8 Office Visit 10/05/2017 1:45p [place] [address] F90.0 G47.00 J11.1 H65.03 Office Visit 04/21/2017 11:00a Main Office RENY Sanchez 74991 M54.5 F41.1 R03.0 F90.0 Office Visit 12/22/2016 11:00a [facility] Kya Guerrero M.D. 50326 M54.5 F41.1 R03.0 F90.0 Z00.00 Office Visit 05/14/2016 4:00p [facility] Kya Guerrero M.D. 18097 Z00.00 F90.0 M54.5 F41.1 Office Visit 12/12/2015 1:15p Main Office [place] Michelle, [facility] [address] F90.0 Office Visit 10/10/2015 3:00p [facility] Kya Guerrero M.D. 71995 M54.5 F41.1 F90.0 Z13.220 Office Visit 08/06/2015 10:40a Main Office Harjit Escalona M.D. 18351 J01.40 M54.5 F90.0 F41.1 Office Visit 04/23/2015 10:20a Main Office Harjit Escalona M.D. 89370 461.8 300.00 314.00 724.2 311 Office Visit 02/28/2015 11:20a [facility] Harjit Escalona M.D. 43787 724.2 300.00 314.00 Office Visit 01/09/2015 10:00a Main Office Harjit Escalona M.D. 83269 724.2 530.81 300.00 Office Visit 08/21/2014 4:10p Main Office Harjit Escalona M.D. 76584 530.81 724.2 300.00 Office Visit 06/13/2014 11:00a Main Office Harjit Escalona M.D. 55933 685.0 724.2 Office Visit 03/04/2014 3:30p Main Office Harjit Escalona M.D. 86746 724.2 Office Visit 08/13/2013 3:30p Main Office Harjit Escalona M.D. 40474 724.2 Office Visit 07/12/2013 6:00p Main Office Byron White M.D. 92594 724.2 596.54 300.00 780.50 Office Visit 06/15/2013 3:30p Main Office Harjit Escalona M.D. 97152 724.2 Office Visit 05/16/2013 3:30p [facility] Byron White M.D. 80728 724.2 300.00 596.54 780.50 Office Visit 04/17/2013 2:20p [facility] Byron White M.D. 49563 724.2 300.00 596.54 780.50 Office Visit 04/12/2013 4:15p [facility] [place] Michelle [facility] 80773 724.2 Office Visit 12/05/2012 3:30p [facility] Byron White M.D. 10083 V72.83 719.47 300.00 596.54 530.81 Office Visit 11/13/2012 4:00p [facility] Byron White M.D. 97528 788.36 300.00 780.50 078.10 Office Visit 08/14/2012 4:00p [facility] Office Byron White M.D. 68025 596.54 300.00 780.50 Office Visit 07/10/2012 4:10p [facility] Office Byron White M.D. 08430 724.2 596.54 300.00 Office Visit 06/05/2012 9:50a [facility] Byron White M.D. 02807 724.2 596.54 300.00 Office Visit 05/25/2012 6:20p Main Office Byron White M.D. 69174 596.54 300.00 786.2 Office Visit 05/08/2012 8:40a [facility] Byron White M.D. 30030 596.54 374.44 300.00 724.2 Office Visit 04/17/2012 9:50a [facility] Byron White M.D. 57089 596.54 374.44 300.00 789.00 Office Visit 04/10/2012 11:10a [facility] Byron White M.D. 70258 596.54 374.44 300.00 724.2 Office Visit 03/31/2012 2:45p [facility] Kalpesh Spann 74399 724.2 788.36 Office Visit 03/28/2012 7:15p Main Office Kalpesh Spann 46445 724.2 Office Visit 02/14/2012 11:10a Main Office Dipak Yee M.D. 48134 466.0 088.81 Office Visit 09/13/2011 9:10a Main Office Dipak Yee M.D. 05670 466.0 Office Visit 01/11/2011 9:10a Main Office Dipak Yee M.D. 23947 466.0 Office Visit 06/24/2010 10:20a Main Office Dipak Yee M.D. 04171 V70.0 Office Visit 04/22/2010 9:45a Main Office Marienp-C 34494 465.9 Office Visit 12/20/2009 11:40a Main Office Byron White M.D. 82369 465.9 Office Visit 03/11/2003 12:10p Main Office Dipak Yee M.D. 23951 780.6 Office Visit 01/17/2003 10:20a Main Office Xander Brito M.D. 46317 V70.5 Plan of Care 02/03/2018 - Loretta Bangura, NPI10 Essential (primary) hypertensionComments: The patient will continue to monitor blood pressure and let me know the blood pressure results if there are readings persistently above 140/80. Goal blood pressure is less than 140/80. Recommend low salt/cardiac diet and routine exercise. I will run some labs to make sure there is no secondary cause for the high blood pressure - if those result back normal we will start you on some BP medications or consider coming down on the ADHD medication.M79.675 Pain in left toe(s)Comments:keep foot elevated, keep ice on itAllComments:~B_~U_ Medication Management~b_~u_ Patient Understands medications he's taking? Yes No Are there Barriers to Adherence? Yes No Has the patient been asked about herbal supplements and therapies, and OTC meds? Yes No ~ B_~U_Care Plan~b_~u_1. Patient has been queried about patient's goals/ preferences and functional/lifestyle goals at relevant visits. If relevant, describe: na2. Treatment goals as explained to the patient: above3. Are there barriers to meeting treatment goals? Yes No If Yes, please describe:4. Self-Management goals as described to the patient: Yes NoFollow up:As always, we strongly encourage a healthy diet and making physical activity a part of your every day life. If you have questions about how or where to start, please contact the office.
[2018-02-05] MEDS ORDERED: Lidocaine 1%* 5 ML VIAL INJ ONE (13:15)
[2018-02-05] MEDS ORDERED: Lidocaine 1%* 5 ML VIAL ONE (13:15)
[2018-02-05] MEDS ORDERED: Colchicine* 0.6 MG TAB PO SCH (14:00)
[2018-02-05] MEDS ORDERED: HYDROcodone/ACETAMIN 5-325 MG* 1 TAB PO ONE (14:34)
[2018-02-05] MEDS ORDERED: Indomethacin CAP* 25 MG CAP PO ONE (14:34)
[2018-02-05] MEDS ORDERED: Dexamethasone IV* 4 MG/ML 1 ML (4 MG) IM ONE (15:42)
--- NOTE | 2018-02-05 15:49 | RAD ---
INDICATION: Right great toe injury and redness. TECHNIQUE: 3 views of the right great toe were obtained. FINDINGS: There is focal soft tissue swelling in the great toe which is most prominent at the metatarsophalangeal joint. There is a large calcific deposit adjacent to the medial aspect of the joint space. No bony erosions are seen. No fracture is seen. IMPRESSION: SOFT TISSUE SWELLING AND LARGE CALCIFIC DEPOSIT ADJACENT TO THE FIRST METATARSAL-PHALANGEAL JOINT RAISING THE POSSIBILITY OF GOUTY ARTHRITIS VERSUS DYSTROPHIC, METABOLIC, AUTOIMMUNE, POSTTRAUMATIC OR METASTATIC CALCIFICATION.
[2018-02-05 16:11] VITALS: BP 152/90
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
== END 2018-02-05 16:10 | disposition home or self-care (01) ==
LOC: ED 12:39
DX: M10.9 Gout, unspecified (principal); Z87.891 Personal history of nicotine dependence
CPT/HCPCS: 20600; 87070; 87205; 87640; 87641; 89060; 96372; 99283; A9270-GY; J1100